=== PATIENT | male | born 1990 | race Caucasian/White ===

== ENCOUNTER 2017-03-22 23:01 | Emergency (ER) | payer OTHER ==
[~2017-03-22] VITALS: Ht 182.9 cm; Wt 97.5 kg
[~2017-03-22 23:01] MED LIST: ALBUTEROL INHAL17 GM IH; ALBUTEROL2.5 MG/0.1 IH; AMOXICILLIN 50500 M1 PO; AMOXICILLIN 50500 MG PO; AMOXIL 875 MG875 M1 PO; AUGMENTIN 875875 M1 PO; AUGMENTIN 875875 MG PO; AZITHROMYCIN 2250 MG PO; BACTRIM DS TAB1 EACH PO; CEPHALEXIN; CEPHALEXIN 500500 M3 PO; CLEOCIN HCL150 MG PO; DARVOCET-N 1001 EACH PO; DOXYCYCLINE 10100 MG PO; FLONASE16 GM NS; HYDROCODONE-AP1 EAC6 PO; IBUPROFEN 800800 M1 PO; KEFLEX500 MG PO; LIDOCAINE VISC100 M1 SWISH&SPIT; LORATIDINE 10 M10 M1 PO; MUCINEX D TABL1 EAC1 PO; MUCINEX TA600 MG/TA2; NICOTINE TRANSD21 M1; NOHOMEMEDICATIONS; NORCO 5-325 TA1 EACH PO; PENICILLIN V P500 MG PO; PENICILLIN VK500 M1 PO; PENICILLIN VK500 MG PO; PERCOCET 5-3251 EACH PO; PERCOCET 7.5-51 EACH PO; PERIDEX 0.12%473 M1 SSP; PHENERGAN25 MG RE; PREDNISONE50 MG PO; PROAIR HFA8.5 GM IH; TOPAMAX50 MG PO; TYLENOL325 MG PO; ULTRAM 50MG TAB50 MG PO
[2017-03-22] MEDS ORDERED: VECTICAL100 GM TP (23:46)
[2017-03-22] MEDS ORDERED: CLOBEX59 M1 TP (23:46)
[2017-03-22] MEDS ORDERED: PENICILLIN V P500 MG PO (23:46)
== END 2017-03-22 23:58 | disposition home or self-care (01) ==
LOC: ER 23:01
DX: L40.4 Guttate psoriasis (principal); Z88.5 Allergy status to narcotic agent

== ENCOUNTER 2017-06-04 16:36 | Inpatient (IN) | payer OTHER ==
[~2017-06-04] VITALS: Ht 182.9 cm; Wt 86.6 kg
[~2017-06-04 16:36] MED LIST changes: +CLOBEX59 M1 TP; +VECTICAL100 GM TP
[2017-06-04 18:58] LABS: ABSOLUTE NEUTROPHILS 8.3 thou/uL (1.4-8.2); BASOPHILS 0.5 % (0.0-2.0); EOSINOPHILS 1.6 % (0.0-3.0); HEMATOCRIT 44.7 % (42.0-52.0); HEMOGLOBIN 15.6 gm/dL (14.0-18.0); LYMPHOCYTES 27.8 % (24.0-44.0); MCV 85.7 fL (80.0-100.0); MONOCYTES 8.2 % (1.0-8.0); PLATELET COUNT 279 thou/uL (150-400); POLYS 61.9 % (36.0-66.0); RBC 5.21 mil/uL (4.50-6.00); RDW 13.7 % (10.5-14.5); WBC 13.4 thou/uL (4.0-11.0)
[2017-06-04 19:02] LABS: MANUAL DIFF NO
[2017-06-04 19:16] LABS: CREATININE 0.9 mg/dL (0.7-1.3); POTASSIUM 3.8 mmol/L (3.5-5.1)
[2017-06-05 00:26] VITALS: BP 117/80
[2017-06-05 05:05] VITALS: BP 119/79
[2017-06-05 06:43] LABS: CALCIUM 8.5 mg/dL (8.5-10.1); CREATININE 0.9 mg/dL (0.7-1.3)
[2017-06-05 07:46] VITALS: BP 119/88
[2017-06-05 14:30] VITALS: BP 134/94
[2017-06-05 20:00] VITALS: BP 123/79
[2017-06-06 04:00] VITALS: BP 131/70
[2017-06-06 08:00] VITALS: BP 133/73
[2017-06-06 16:05] VITALS: BP 120/79
[2017-06-06] MEDS ORDERED: LINEZOLID600 MG PO (17:24)
[2017-06-06 20:45] VITALS: BP 122/81
[2017-06-07 04:00] VITALS: BP 108/77
[2017-06-07 04:57] LABS: HEMATOCRIT 43.7 % (42.0-52.0); HEMOGLOBIN 14.8 gm/dL (14.0-18.0); MCH 29.6 pg (26.0-34.0); MCHC 33.9 g/dL (28.0-37.0); MCV 87.5 fL (80.0-100.0); RDW 13.4 % (10.5-14.5); WBC 17.3 thou/uL (4.0-11.0)
[2017-06-07 05:04] LABS: CALCIUM 8.1 mg/dL (8.5-10.1); POTASSIUM 3.7 mmol/L (3.5-5.1)
[2017-06-07 07:21] VITALS: BP 122/91
[2017-06-07] MEDS ORDERED: HYDROCODON-ACE1 EAC7 PO (08:12)
[2017-06-07 09:42] VITALS: BP 122/91
== END 2017-06-07 10:51 | disposition home or self-care (01) | DRG 558 ==
LOC: ER 16:36 → 4E 18:00 → EROBS 18:00 → 3N 19:48 → 4E 20:12
PROVIDERS: Family Medicine; Nurse Practitioner; Physician Assistant
PROC: 0X9J3ZZ Drainage of Right Hand, Percutaneous Approach (ICD-10-PCS; principal; 2017-06-05)
DX: M65.841 Other synovitis and tenosynovitis, right hand (principal); L40.9 Psoriasis, unspecified; L30.9 Dermatitis, unspecified; F17.210 Nicotine dependence, cigarettes, uncomplicated; D72.829 Elevated white blood cell count, unspecified; B95.62 Methicillin resistant Staphylococcus aureus infection as the cause of diseases classified elsewhere; Z86.14 Personal history of Methicillin resistant Staphylococcus aureus infection; Z79.899 Other long term (current) drug therapy; Z88.6 Allergy status to analgesic agent
CPT/HCPCS: 10084; 50010; 50101; 56526; 62110; 62900; 64037; 70005

== ENCOUNTER 2017-06-12 15:35 | Emergency (ER) | payer OTHER ==
[~2017-06-12] VITALS: Ht 182.9 cm; Wt 90.7 kg
[~2017-06-12 15:35] MED LIST changes: +HYDROCODON-ACE1 EAC7 PO; +LINEZOLID600 MG PO
[2017-06-12 16:22] LABS: ABSOLUTE NEUTROPHILS 5.9 thou/uL (1.4-8.2); BASOPHILS 0.6 % (0.0-2.0); EOSINOPHILS 2.3 % (0.0-3.0); HEMATOCRIT 44.5 % (42.0-52.0); HEMOGLOBIN 15.3 gm/dL (14.0-18.0); LYMPHOCYTES 34.5 % (24.0-44.0); MANUAL DIFF NO; MCH 29.5 pg (26.0-34.0); MCHC 34.3 g/dL (28.0-37.0); MCV 86.2 fL (80.0-100.0); MONOCYTES 10.4 % (1.0-8.0); PLATELET COUNT 270 thou/uL (150-400); POLYS 52.2 % (36.0-66.0); RBC 5.17 mil/uL (4.50-6.00); RDW 13.4 % (10.5-14.5); WBC 11.4 thou/uL (4.0-11.0)
[2017-06-12 16:30] LABS: CALCIUM 8.8 mg/dL (8.5-10.1); POTASSIUM 3.6 mmol/L (3.5-5.1)
[2017-06-12 16:35] LABS: ALBUMIN 3.7 g/dL (3.4-5.0); TOTAL BILIRUBIN 0.3 mg/dL (<0.1-1.0)
[2017-06-12] MEDS ORDERED: NORCO 5-325 TA1 EACH PO (17:04)
== END 2017-06-12 17:22 | disposition home or self-care (01) ==
LOC: ER 15:35
PROVIDERS: Physician Assistant
DX: M79.644 Pain in right finger(s) (principal); F17.210 Nicotine dependence, cigarettes, uncomplicated; Z88.5 Allergy status to narcotic agent

== ENCOUNTER 2017-07-16 16:13 | Emergency (ER) | payer OTHER ==
[~2017-07-16] VITALS: Ht 182.9 cm; Wt 99.8 kg
[~2017-07-16 16:13] MED LIST changes: +NAPROSYN500 MG PO; +TRAMADOL 50 MG50 MG PO
[2017-07-16] MEDS ORDERED: IMITREX100 MG PO (16:16)
[2017-07-16] MEDS ORDERED: ERYTHROMYCIN E3.5 G3 OPHTHALMIC (16:25)
== END 2017-07-16 16:50 | disposition home or self-care (01) ==
LOC: ER 16:13
DX: H01.002 Unspecified blepharitis right lower eyelid (principal); F17.210 Nicotine dependence, cigarettes, uncomplicated; Z98.890 Other specified postprocedural states; Z87.09 Personal history of other diseases of the respiratory system; Z88.5 Allergy status to narcotic agent

== ENCOUNTER 2017-08-11 23:14 | Emergency (ER) | payer OTHER ==
[~2017-08-11] VITALS: Ht 182.9 cm; Wt 90.7 kg
[~2017-08-11 23:14] MED LIST changes: +ERYTHROMYCIN E3.5 G3 OPHTHALMIC; +IMITREX100 MG PO
[2017-08-13] MEDS ORDERED: NAPROSYN500 MG PO (23:01)
== END 2017-08-12 00:59 | disposition home or self-care (01) ==
LOC: ER 23:14
DX: S90.821A Blister (nonthermal), right foot, initial encounter (principal); B35.3 Tinea pedis; F17.210 Nicotine dependence, cigarettes, uncomplicated; Z87.09 Personal history of other diseases of the respiratory system; Z98.890 Other specified postprocedural states; Z88.5 Allergy status to narcotic agent; X58.XXXA Exposure to other specified factors, initial encounter; Y93.89 Activity, other specified; Y92.89 Other specified places as the place of occurrence of the external cause; Y99.8 Other external cause status

== ENCOUNTER 2017-08-13 21:44 | Emergency (ER) | payer OTHER ==
[~2017-08-13] VITALS: Ht 182.9 cm; Wt 90.7 kg
[2017-08-13] MEDS ORDERED: NAPROSYN500 MG PO (23:01)
== END 2017-08-13 23:47 | disposition home or self-care (01) ==
LOC: ER 21:44
DX: S93.402A Sprain of unspecified ligament of left ankle, initial encounter (principal); S90.522A Blister (nonthermal), left ankle, initial encounter; F17.210 Nicotine dependence, cigarettes, uncomplicated; Z87.09 Personal history of other diseases of the respiratory system; Z98.890 Other specified postprocedural states; Z88.5 Allergy status to narcotic agent; X58.XXXA Exposure to other specified factors, initial encounter; Y93.89 Activity, other specified; Y92.89 Other specified places as the place of occurrence of the external cause; Y99.8 Other external cause status